=== PATIENT | female | born 1970 | race Caucasian/White ===

== ENCOUNTER 2021-12-21 17:51 | Emergency (ER) | payer OTHER, SELFPAY ==
--- NOTE | ~2021-12-21 | XR_ITS ---
EXAMINATION: XR chest 2V Exam Date/Time: 12/21/2021 18:15 CDT HISTORY: COUGH/CONGESTION 12/18/21 GETTING. SMOKER. Comparison: None available. RESULT: Lines, tubes, and devices: None. Lungs and pleura: 7 mm nodular opacity in the right lower lung without definite correlate on the lat eral view. Linear opacities in the right lower lung with right lateral costophrenic angle blunting, l ikely represent chronic scarring. 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 Cardiomediastinal silhouette: Unremarkable. Other: No acute osseous or upper abdominal finding. IMPRESSION: No acute cardiopulmonary process. Possible 7 mm right lower lung pulmonary nodule, recommend nonemerg ent, outpatient noncontrast CT of the chest for further evaluation Reviewed, dictated and finalized at location K. IMPRESSION: No acute cardiopulmonary process. Possible 7 mm right lower lung pulmonary nodu le, recommend nonemergent, outpatient noncontrast CT of the chest for further e valuation
[2021-12-21 17:58] VITALS: BP 136/76; PULSE 102; RESP 20; TEMP 36.3; O2SAT 98
--- NOTE | 2021-12-21 18:20 | ED.GENADULT ---
HPI - General Adult General Chief complaint: Upper Respiratory Infection Stated complaint: Chest Congestion/Cough Source: patient Mode of arrival: ambulatory Limitations: no limitations History of Present Illness HPI narrative: Patient presents for evaluation of cough since Thursday of this week. No recent sick contacts to her knowledge. No fever, chills, nausea, vomiting, diarrhea. She had a sore throat but that has resolved. She tried mucinex and states that it was initially effective but has since lost efficacy. She is a daily smoker. She has never had COVID. She has received COVID vaccination. No additional complaints or concerns. Related Data Home Medications Medication Instructions Recorded Confirmed alprazolam 2 mg tablet 2 mg PO TID PRN Anxiety 12/21/21 12/21/21 dextroamphetamine-amphetamine 30 30 mg PO TID 12/21/21 12/21/21 mg tablet escitalopram oxalate 20 mg tablet 20 mg PO DAILY 12/21/21 12/21/21 Allergies Allergy/AdvReac Type Severity Reaction Status Date / Time No Known Allergies Allergy Verified 12/21/21 18:10 Review of Systems Review of Systems: CONSTITUTIONAL: Denies fever, chills, or sweats. EYES: Denies visual changes, redness, or discharge. ENT: Reports recent sore throat, now resolved. Denies rhinorrhea, congestion, or otalgia. CARDIOVASCULAR: Denies chest pain, palpitations, or edema. RESPIRATORY: Reports cough. Denies dyspnea. GASTROINTESTINAL: Denies abdominal pain, nausea, vomiting, or diarrhea. GENITOURINARY: Denies dysuria or hematuria. SKIN: Denies rash or itching. MUSCULOSKELETAL: Denies back pain, joint pain, or myalgia. NEUROLOGIC: Denies headache, numbness, dizziness, or weakness. PSYCHIATRIC: Denies anxiety or depression. [facility] Past Medical History Medical History (Updated 12/21/21 @ 19:07 by Indra Hay, MYRIAM, KIERA) No pertinent past medical history Surgical History Surgical History History of knee surgery Family History Family History Mother Family history non-contributory Social History Social History Smoking status: Current every day smoker Substance use: never Living arrangements: alone Gender identity (if verbalized by the patient): Female Sexual Orientation (if Verbalized by the Patient): Straight or Heterosexual Spiritual care concerns: No Exam Narrative: GENERAL: Well-appearing, well-nourished, and in no acute distress. HEAD: Normocephalic, atraumatic. EYES: PERRLA and EOMI. ENT: Nares clear, no rhinorrhea or epistaxis. Mucous membranes moist. Oropharynx without tonsillar hypertrophy exudate or other lesions. Bilateral TMs pearly rico nonbulging NECK: Supple. No adenopathy or masses. No carotid bruits or JVD CHEST: Rales in RUL. Cough present on exam. No respiratory distress. No wheezes rales or rhonchi HEART: Regular rate and rhythm. No murmur heard. Normal peripheral pulses. ABDOMEN: Soft, nontender, nondistended, normal active bowel sounds. EXTREMITIES: Normal range of motion. No edema. SKIN: Warm, dry, no rash. NEURO: No focal deficits. Alert and oriented x3. PSYCH: Normal mood and affect. Course Course Emergency Course: This is a 51-year-old female who presented for evaluation of sick symptoms.. Patient's x-ray does not show apparent pneumonia. There appears to be a pulmonary nodule. She was advised to follow-up CT scan for further surveillance. She has a nebulizer machine at home. Will discharge with albuterol nebulizer solution as she does not have any currently. She has been wheezing at home so we will give her a burst of steroids and also some Tessalon Perles. She should go to the ER for worsening symptoms. Patient in agreement with plan of care. Level of Care: Express Care Visit Vital Signs Vital signs: Vital Signs Temperatu
== END 2021-12-21 19:10 | disposition home or self-care (01) ==
PROVIDERS: Emergency Provider Nurse Practitioner
DX: J06.9 Acute upper respiratory infection, unspecified (principal); R91.1 Solitary pulmonary nodule; Z20.822 Contact with and (suspected) exposure to COVID-19
CPT/HCPCS: 71046; 87426; 99213; C9803; G0463